=== PATIENT | female | born 1970 | race African-American/Black ===

== ENCOUNTER 2019-03-18 11:43 | Day surgery (SDC) | payer OTHER ==
[2019-03-17 12:19] VITALS: BMI 49.6
[~2019-03-18 11:43] MED LIST: Lidocaine 1% PF 5 ML VIAL ONE; PROPOFOL 200 MG/20 ML VIAL ONE
--- NOTE | 2019-03-18 17:53 | OP ---
DATE OF PROCEDURE: 03/18/2019 PRIMARY CARE PHYSICIAN: Dr. Vaibhav Lai in [place]. PROCEDURE PERFORMED: Colonoscopy with polypectomy. PREPROCEDURE DIAGNOSES: 1. Colon cancer screening. 2. Rectal outlet bleeding. 3. Chronic constipation. POSTPROCEDURE DIAGNOSES: 1. Exam to cecum; good bowel preparation. 2. Diminutive polyp in the cecum, 2 mm in diameter, excised with cold biopsy forceps. 3. No other synchronous polyps identified. 4. Small to medium edematous internal hemorrhoids, not actively bleeding. 5. Otherwise normal colonoscopy. PROCEDURE IN DETAIL: Written informed consent was obtained. The patient was brought to the endoscopy suite. Total intravenous anesthesia was administered by Dr. Honorio De Leon and associates. The patient was placed in the left lateral decubitus position. A digital rectal exam was performed that was unremarkable. A Pentax video colonoscope was inserted through the anal canal and advanced under direct visualization to the cecum. Position in the cecum was verified by clear identification of the appendiceal orifice and the ileocecal valve. The quality of the bowel preparation was good. Each colon segment was examined carefully as the colonoscope was slowly withdrawn from the cecum. Vascular pattern and haustral folds appeared normal. In the cecum, a diminutive 2 mm sessile polyp was identified and excised with cold biopsy forceps. Polypectomy was complete, and the tissue was submitted to Pathology. The remainder of the colon appeared grossly normal. No other synchronous polyps were identified. In the rectum, a retroflexed view demonstrated small to medium internal hemorrhoids that were edematous, but not actively bleeding. The colon was decompressed as the colonoscope was removed from the patient. She was transferred to the Day Stay surgery area for postprocedure monitoring. There were no immediate complications. RECOMMENDATIONS: 1. Await pathology results. 2. Ask the patient to call me in 1 week for pathology results. 3. Resume previous medications. 4. High-fiber low-fat diet to include 20 to 25 g of fiber daily. 5. Sitz baths t.i.d. p.r.n. 6. Pending pathology results, repeat colonoscopy in 5 to 10 years. 7. Follow up with Gastroenterology in 6 to 9 months. Job ID: [id number]
== END 2019-03-18 15:00 | disposition home or self-care (01) ==
LOC: SDC 11:43
PROVIDERS: ATTEND Internal Medicine Gastroenterology
PROC: 0DBH8ZZ Excision of Cecum, Via Natural or Artificial Opening Endoscopic (ICD-10-PCS; principal; 2019-03-18)
DX: D12.0 Benign neoplasm of cecum (principal); K64.8 Other hemorrhoids; K59.09 Other constipation; I10 Essential (primary) hypertension; E66.9 Obesity, unspecified; Z79.899 Other long term (current) drug therapy; Z88.8 Allergy status to other drugs, medicaments and biological substances; Z68.42 Body mass index [BMI] 45.0-49.9, adult
CPT/HCPCS: 88305; J2001; J2704